=== PATIENT | female | born 1985 | race Caucasian/White ===

== ENCOUNTER → 2017-05-18 | Outpatient (CLI) | payer OTHER ==
[~2017-05-18] MED LIST: ANT25 PO; ESTR1TAB2 PO
[2017-05-18 15:53] LABS: URINE APPEARANCE CLEAR (CLEAR); URINE BILIRUBIN NEG (NEG); URINE COLOR YELLOW; URINE NITRITE NEG (NEG); URINE SPECIFIC GRAVITY 1.033 (1.000-1.030); UROBILINOGEN NEG (NEG)
[2017-05-18 15:56] LABS: MANUAL MICROSCOPIC REQUIRED? NO; REVIEW REQ? NO
== END | disposition home or self-care (01) ==
LOC: C.LAB1850 15:04
PROVIDERS: ATTEND Obstetrics & Gynecology
DX: R39.9 Unspecified symptoms and signs involving the genitourinary system (principal)

== ENCOUNTER → 2017-07-24 | Outpatient (CLI) | payer OTHER | END | disposition home or self-care (01) | LOC: C.LAB 02:54 | DX: Z02.83 Encounter for blood-alcohol and blood-drug test (principal) ==

== ENCOUNTER 2018-02-14 07:56 | Emergency (ER) | payer OTHER ==
[~2018-02-14] VITALS: Ht 167.6 cm; Wt 60.0 kg
[2018-02-14 08:03] VITALS: Ht 167.6 cm; Wt 60.0 kg
[2018-02-14] MEDS ORDERED: ONDANSETRON INJ 2 MG/ML 2 ML VIAL IV STA (08:22)
[2018-02-14] MEDS ORDERED: SODIUM CHLORIDE 0.9% 1000ML 1,000 ML IV STA (08:22)
[2018-02-14] MEDS ORDERED: FENTANYL CITRATE INJ 50 MCG/1 ML 2 ML VIAL IV STA (08:22)
[2018-02-14] MEDS ORDERED: CEFTRIAXONE SOD INJ 1 GM ADDVIAL IV STA (08:25)
[2018-02-14] MEDS ORDERED: OPTIRAY 320 IV PRN (08:30)
[2018-02-14 08:35] LABS: BASO % 0.4 %; BASO ABS # 0.06 K/uL (0-0.2); EOS % 2.1 %; EOS ABS # 0.34 K/uL (0-0.5); HEMATOCRIT 38.6 % (37-47); HEMOGLOBIN 13.8 g/dL (12.0-16.0); IG# 0.05 K/uL (0.00-0.02); LYMPH % 13.2 %; MEAN CELL VOLUME 90.8 fL (80-100); MEAN CORPUSCULAR HEMOGLOBIN 32.5 pg (25-34); MEAN CORPUSCULAR HGB CONC 35.8 g/dl (32-36); MEAN PLATELET VOLUME 11.4 fL (7.4-10.4); MONO % 11.1 %; MONO ABS # 1.77 K/uL (0.11-0.59); NEUT % 72.9 %; NEUT ABS # 11.58 K/uL (1.4-6.5); PLATELET COUNT 289 K/uL (130-400); RED CELL DISTRIBUTION WIDTH CV 12.9 % (11.5-14.5); RED CELL DISTRIBUTION WIDTH SD 42.7 fL (36.4-46.3)
[2018-02-14 08:42] LABS: ALBUMIN 4.2 gm/dl (3.4-5.0); CALCIUM 9.7 mg/dl (8.5-10.1); CREATININE 0.85 mg/dl (0.60-1.20); POTASSIUM 3.9 mmol/L (3.5-5.1)
[2018-02-14 08:45] LABS: TOTAL PROTEIN 8.4 gm/dl (6.4-8.2)
[2018-02-14 08:48] VITALS: TEMP 36.9
--- NOTE | 2018-02-14 09:02 | EMERGENCY ROOM VISIT NOTE ---
History Report prepared by Chas: Diandra Ratliff Under the Supervision of: Dr. Mari Peter M.D. First contact with patient: 08:16 Chief Complaint: FLANK PAIN Stated Complaint: KIDNEY PAIN,THROWING UP History of Present Illness The patient is a 32 year old female who presents to the Emergency Room with complaints of worsening right-sided flank pain for the past 3 days. The patient reports that 3 days ago she was experiencing mild right-sided flank pain with nausea, vomiting, and a low-grade fever. Yesterday the patient's pain worsened. This morning the patient woke up with worsening pain. Her pain radiates from her right flank, across her back, and into her left side. She reports dysuria and hematuria. The patient rates her current pain as an 8/10 in severity. She did not take any medication today. She has a history of a kidney infection about 3 years ago. The patient denies diarrhea and any chance of . Source of History: patient Onset: 3 days ago Position: back Symptom Intensity: 8/10 Quality: other (radiating) Timing: worsening Associated Symptoms: + fevers, + nausea, + vomiting, + urinary symptoms, No diarrhea Review of Systems See HPI for pertinent positives & negatives. A total of 10 systems reviewed and were otherwise negative. Past Medical & Surgical Medical Problems: (1) Nasal fracture Family History Kidney disease Social History Smoking Status: Current Every Day Smoker Alcohol Use: occasionally Marital Status: single Housing Status: lives with family Current/Historical Medications Scheduled Cefdinir (Omnicef), 300 MG PO Q12H Allergies Coded Allergies: No Known Allergies (Verified , 02/14/18) Physical Exam Vital Signs Date Time Temp Pulse Resp B/P (MAP) Pulse Ox O2 Delivery O2 Flow Rate FiO2 02/14/18 10:55 73 15 102/75 95 Room Air 02/14/18 09:30 78 18 118/81 98 Room Air 02/14/18 08:52 90 02/14/18 08:48 36.9 82 18 111/70 97 Room Air 02/14/18 08:03 37.1 83 18 122/79 99 Room Air Physical Exam Vital signs reviewed. General: Well-appearing female, in some discomfort. HEENT: No scleral icterus, PERRLA, neck supple. Atraumatic. Cardiovascular: Regular rate and rhythm, no extra sounds. Pulmonary: Clear to auscultation bilaterally, normal work of breathing. Abdomen: Soft, mild diffuse abdominal abdominal tenderness, nondistended, positive bowel sounds. Right greater than left CVA tenderness. Musculoskeletal: Atraumatic, no peripheral edema. Neurologic: Patient awake alert and oriented x 3 Skin: Warm, dry, no rash Medical Decision & Procedures ER Provider Diagnostic Interpretation: Radiology results as stated below per my review and radiologist interpretation: ABD/PELVIS IV CONTRAST ONLY CT DOSE: 302.70 mGy.cm HISTORY: Flank pain pyelonephritis TECHNIQUE: Multiaxial CT images of the abdomen and pelvis were performed following the use of intravenous contrast. A dose lowering technique was utilized adhering to the principles of ALARA. COMPARISON STUDY: 05/22/2015 FINDINGS: Lung bases are considered clear. Liver demonstrates several small cysts as well as a small meningioma of the medial left hepatic lobe. These findings are stable compared to the prior study. The left kidney enhances uniformly. There is no evidence for left-sided hydroureteronephrosis. The right kidney shows uniform enhancement characteristics. There is slight fullness of the right renal collecting system, however with incomplete opacification of the right ureter throughout the bulk of its length. There is a mild enhancement of the uroepithelium on the right suggesting potential underlying polyarthritis. There is moderate wall thickening of the bladder with mild lateral wall irregularity. Underlying cystitis is also a consideration. Calcifications at the left bladder base is unchanged in the prior study. There are no new or interval calcifications. Surgical clips in the low pelvic sidewall regions are unchanged. Bowel pattern is nonobstructive. IMPRESSION: 1. Findings suggesting cystitis with probable secondary right uroepithelial hyperemia with underlying mild pyelonephritis 2. No evidence for abscess or collection. 3. No evidence for obstructive characteristics of the urinary tracts.. The above report was generated using voice recognition software. It may contain grammatical, syntax or spelling errors. Electronically signed by: Eddie Luis M.D. 02/14/2018 9:24 AM Dictated Date/Time: 02/14/2018 9:17 AM Laboratory Results 02/14/18 08:15 Red Blood Count 4.25, Mean Corpuscular Volume 90.8, Mean Corpuscular Hemoglobin 32.5, Mean Corpuscular Hemoglobin Concent 35.8, Mean Platelet Volume 11.4, Neutrophils (%) (Auto) 72.9, Lymphocytes (%) (Auto) 13.2, Monocytes (%) (Auto) 11.1, Eosinophils (%) (Auto) 2.1, Basophils (%) (Auto) 0.4, Neutrophils # (Auto ) 11.58, Lymphocytes # (Auto) 2.10, Monocytes # (Auto) 1.77, Eosinophils # (Auto ) 0.34, Basophils # (Auto) 0.06 02/14/18 08:15 Test 02/14/18 08:15 White Blood Count 15.90 K/uL (4.8-10.8) Red Blood Count 4.25 M/uL (4.2-5.4) Hemoglobin 13.8 g/dL (12.0-16.0) Hematocrit 38.6 % (37-47) Mean Corpuscular Volume 90.8 fL (80-100) Mean Corpuscular Hemoglobin 32.5 pg (25-34) Mean Corpuscular Hemoglobin Concent 35.8 g/dl (32-36) Platelet Count 289 K/uL (130-400) Mean Platelet Volume 11.4 fL (7.4-10.4) Neutrophils (%) (Auto) 72.9 % Lymphocytes (%) (Auto) 13.2 % Monocytes (%) (Auto) 11.1 % Eosinophils (%) (Auto) 2.1 % Basophils (%) (Auto) 0.4 % Neutrophils # (Auto) 11.58 K/uL (1.4-6.5) Lymphocytes # (Auto) 2.10 K/uL (1.2-3.4) Monocytes # (Auto) 1.77 K/uL (0.11-0.59) Eosinophils # (Auto) 0.34 K/uL (0-0.5) Basophils # (Auto) 0.06 K/uL (0-0.2) RDW Standard Deviation 42.7 fL (36.4-46.3) RDW Coefficient of Variation 12.9 % (11.5-14.5) Immature Granulocyte % (Auto) 0.3 % Immature Granulocyte # (Auto) 0.05 K/uL (0.00-0.02) Urine Color YELLOW Urine Appearance TURBID (CLEAR) Urine pH 5.0 (4.5-7.5) Urine Specific Newborn 1.015 (1.000-1.030) Urine Protein 3+ (NEG) Urine Glucose (UA) NEG (NEG) Urine Ketones 1+ (NEG) Urine Occult Blood 3+ (NEG) Urine Nitrite POS (NEG) Urine Bilirubin NEG (NEG) Urine Urobilinogen NEG (NEG) Urine Leukocyte Esterase LARGE (NEG) Urine WBC (Auto) >30 /hpf (0-5) Urine RBC (Auto) 10-30 /hpf (0-4) Urine Hyaline Casts (Auto) /lpf (0-5) Urine Epithelial Cells (Auto) >30 /lpf (0-5) Urine Bacteria (Auto) 2+ (NEG) Urine Pathogenic Casts /lpf (0) Urine Yeast (Auto) (NONE PRSENT) Urine Test NEG (NEG) Anion Gap 9.0 mmol/L (3-11) Est Creatinine Clear Calc Drug Dose 87.2 ml/min Estimated GFR () 103.6 Estimated GFR (Non- 89.4 BUN/Creatinine Ratio 17.4 (10-20) Calcium Level 9.7 mg/dl (8.5-10.1) Total Bilirubin 0.7 mg/dl (0.2-1) Direct Bilirubin 0.1 mg/dl (0-0.2) Aspartate Amino Transf (AST/SGOT) 12 U/L (15-37) Alanine Aminotransferase (ALT/SGPT) 20 U/L (12-78) Alkaline Phosphatase 117 U/L (45-117) Total Protein 8.4 gm/dl (6.4-8.2) Albumin 4.2 gm/dl (3.4-5.0) Laboratory results per my review. Medications Administered Medications (Trade) Dose Ordered Sig/Donovan Route Start Time Stop Time Status Last Admin Dose Admin Sodium Chloride 1,000 ml @ 999 mls/hr Q1H1M STAT IV 02/14/18 08:22 02/14/18 09:22 DC 02/14/18 08:22 999 MLS/HR Fentanyl Citrate (Fentanyl Inj) 50 mcg NOW STAT IV 02/14/18 08:22 02/14/18 08:25 DC 02/14/18 08:45 50 MCG Ondansetron HCl (Zofran Inj) 4 mg NOW STAT IV 02/14/18 08:22 02/14/18 08:25 DC 02/14/18 08:45 4 MG Ceftriaxone Sodium (Rocephin Inj) 1 gm NOW STAT IV 02/14/18 08:25 02/14/18 08:26 DC 02/14/18 08:46 1 GM Ketorolac Tromethamine (Toradol Inj) 30 mg NOW STAT IV 02/14/18 09:30 02/14/18 09:32 DC 02/14/18 09:42 30 MG Morphine Sulfate (MoRPHine SULFATE INJ) 4 mg NOW STAT IV 02/14/18 09:30 02/14/18 09:32 DC 02/14/18 09:42 4 MG ED Course 0816: Past medical records reviewed. The patient was evaluated in room B10. A complete history and physical examination was performed. 0822: Zofran 4 mg IV, Fentanyl 50 mcg IV, NSS 1000 ml @ 999 mls/hr IV 0825: Rocephin 1 gm IV 0930: Morphine sulfate 4 mg IV, Toradol 30 mg IV 1115: I reassessed the patient at this time. She is feeling better and resting comfortably. I discussed the results and treatment plan with the patient. I answered all pertaining questions that she had. She expressed understanding and verbalized agreement. The patient will be discharged home. Medical Decision Differential diagnosis: Etiologies such as renal colic, appendicitis, diverticulitis, mesenteric ischemia, aortic pathology, infections, inflammatory bowel disease, PUD, biliary pathology, UTI, as well as others were entertained. This patient was evaluated and appeared to be in some discomfort. IV access was obtained and laboratory work was drawn. Patient was placed on the credit card clerk. She was hydrated with normal saline solution. Patient was given IV hydration as well as fentanyl and Zofran initially. CT scan of the abdomen pelvis was obtained after UA is positive. This is consistent with a pyelonephritis, no significant obstruction or abscesses appreciated. Laboratory work reveals a normal white blood cell count. The patient is afebrile. She was given a dose of IV ceftriaxone. She did require IV morphine and Toradol for additional pain management. Patient was advised to use ibuprofen 600 mg every 6 hours as needed for pain with food and was given a prescription for Omnicef 300 mg twice daily for 7 days. She will follow-up with her PCP for reevaluation and return to the ER for worsening of symptoms or new medical concerns. Medication Reconcilliation Current Medication List: was personally reviewed by me Blood Pressure Screening Patient's blood pressure: Normal blood pressure Impression Primary Impression: Pyelonephritis Scribe Attestation The scribe's documentation has been prepared under my direction and personally reviewed by me in its entirety. I confirm that the note above accurately reflects all work, treatment, procedures, and medical decision making performed by me. Departure Information Dispostion Home / Self-Care Prescriptions Cefdinir (Omnicef) 300 Mg Cap 300 MG PO Q12H for 7 Days, #14 CAP Prov: Mari Peter M.D. 02/14/18 Referrals No Doctor, Assigned (PCP) Forms HOME CARE DOCUMENTATION FORM, IMPORTANT VISIT INFORMATION Patient Instructions My [facility] Additional Instructions Diagnosis: Pyelonephritis Omnicef 300 mg twice daily for 7 days. Drink plenty of clear fluids. Ibuprofen 600 mg every 6 hours as needed for pain. Follow-up with your physician for reevaluation later this week for reevaluation. Return to the ER for worsening of symptoms or any medical concerns.
--- NOTE | 2018-02-14 09:26 | DIAGNOSTIC IMAGING REPORT ---
ABD/PELVIS IV CONTRAST ONLY CT DOSE: 302.70 mGy.cm HISTORY: Flank pain pyelonephritis TECHNIQUE: Multiaxial CT images of the abdomen and pelvis were performed following the use of intravenous contrast. A dose lowering technique was utilized adhering to the principles of ALARA. COMPARISON STUDY: 05/22/2015 FINDINGS: Lung bases are considered clear. Liver demonstrates several small cysts as well as a small meningioma of the medial left hepatic lobe. These findings are stable compared to the prior study. The left kidney enhances uniformly. There is no evidence for left-sided hydroureteronephrosis. The right kidney shows uniform enhancement characteristics. There is slight fullness of the right renal collecting system, however with incomplete opacification of the right ureter throughout the bulk of its length. There is a mild enhancement of the uroepithelium on the right suggesting potential underlying polyarthritis. There is moderate wall thickening of the bladder with mild lateral wall irregularity. Underlying cystitis is also a consideration. Calcifications at the left bladder base is unchanged in the prior study. There are no new or interval calcifications. Surgical clips in the low pelvic sidewall regions are unchanged. Bowel pattern is nonobstructive. IMPRESSION: 1. Findings suggesting cystitis with probable secondary right uroepithelial hyperemia with underlying mild pyelonephritis 2. No evidence for abscess or collection. 3. No evidence for obstructive characteristics of the urinary tracts.. The above report was generated using voice recognition software. It may contain grammatical, syntax or spelling errors. Electronically signed by: Eddie Luis M.D. 02/14/2018 9:24 AM Dictated Date/Time: 02/14/2018 9:17 AM
[2018-02-14] MEDS ORDERED: KETOROLAC TROMETHAMINE 30 MG/ML VIAL IV STA (09:30)
[2018-02-14] MEDS ORDERED: MoRPHine SULFATE 4 MG/ML 1 ML CARP\\VIAL IV STA (09:30)
[2018-02-14] MEDS ORDERED: CEFD1CAP14 PO (10:52)
[2018-02-14 10:55] VITALS: BP 102/75; PULSE 73; O2SAT 95
--- NOTE | 2018-02-16 13:43 | Pharmacy Progress Note ---
ED Pharmacist Culture FollowUp Date of Service: Feb 16, 2018. Patient was sent home with a prescription for cefdinir, which should cover the E. coli growing from the patient's urine culture.
== END 2018-02-14 11:38 | disposition home or self-care (01) ==
LOC: C.EDB 07:57
DX: N12 Tubulo-interstitial nephritis, not specified as acute or chronic (principal); R10.9 Unspecified abdominal pain; R11.2 Nausea with vomiting, unspecified; R30.0 Dysuria; F17.210 Nicotine dependence, cigarettes, uncomplicated